=== PATIENT | male | born 1945 | race Caucasian/White ===

== ENCOUNTER 2016-11-05 10:18 | Day surgery (SDC) | payer MEDICARE ==
[2016-11-05] MEDS ORDERED: LIDOCAINE 2% MDV (20MG/ML) 20ML VIAL IV ONE (14:00)
[2016-11-05] MEDS ORDERED: PROPOFOL 10 MG/ML VIAL IV ONE (14:00)
--- NOTE | 2016-11-07 12:40 | Operative Note ---
DATE OF SURGERY: 11/05/2016 OPERATION: COLONOSCOPY to the cecum with cold snare polypectomy x1. INDICATION: Colorectal cancer screening. His last examination was 10 years ago. ANESTHESIA: Intravenous sedation was administered by the department of anesthesiology and included Diprivan titrated to effect. PROCEDURE: Following informed consent from this alert individual including a discussion of the risks and benefits of the procedure and an opportunity for the patient to ask questions, the patient was in the left lateral decubitus position. A digital rectal examination was performed. No abnormalities were noted. Following this, the Olympus [id number] video colonoscope was inserted into the rectum without resistance. The rectal mucosa had a normal appearance with normal folds and distensibility. The colonoscope was advanced up through the colon to the level of the cecum without much difficulty. Throughout the bowel the mucosa appeared normal, the folds were normal, and the bowel was fairly well distensible. The cecum was well defined by noting the appendiceal orifice, ileocecal valve, and cecal base. Retroflexion in the cecum was endoscopically unremarkable. The colon preparation was good. From the base of the cecum, the colonoscope was then withdrawn. No abnormalities were detected until the sigmoid colon was reached. Within the sigmoid, there were a few scattered diverticula noted. Also noted with a sessile 5 mm polyp which was removed with cold snare polypectomy and suctioned through the endoscope into a collection trap. Retroflexion in the rectum demonstrated small internal hemorrhoids. The endoscope was straightened and withdrawn. The patient tolerated the procedure well and was returned to the recovery area in stable condition. IMPRESSION: 1. A 5 mm sigmoid polyp removed with cold snare polypectomy. 2. Sigmoid diverticulosis. 3. Small internal hemorrhoids. RECOMMENDATIONS: The patient was advised he should receive a copy of his pathology report at home in the next 2-3 weeks. If not, he was asked to call my office to review the results of testing today. Further recommendations forthcoming pending those results. Followup will also be with Dr. Shell. As always, thank you for allowing me to participate in the care of your patient. CC: PETER SHELL MD, FACP [facility]
== END 2016-11-05 12:40 | disposition home or self-care (01) ==
LOC: HOP 10:18
PROVIDERS: ATTEND Internal Medicine Gastroenterology
DX: Z12.11 Encounter for screening for malignant neoplasm of colon (principal); D12.5 Benign neoplasm of sigmoid colon; K57.30 Diverticulosis of large intestine without perforation or abscess without bleeding; K64.8 Other hemorrhoids; I10 Essential (primary) hypertension

== ENCOUNTER 2018-10-13 10:29 | Emergency (ER) | payer MEDICARE, OTHER ==
[2018-10-13] MEDS ORDERED: ONDANSETRON HCL IV 4 MG/2 ML VIAL IVP ONE (11:03)
[2018-10-13] MEDS ORDERED: HYDROMORPHONE HCL 2 MG/ML VIAL IVP ONE (11:03)
--- NOTE | 2018-10-13 12:25 | Emergency Department Record ---
History of Present Illness - General Chief Complaint: Ankle/Foot Injury Stated Complaint: RT ANKLE INJURY Time Seen by Provider: 10/13/18 10:46 Source: Patient Mode of Arrival: Wheelchair Limitations: No limitations - History of Present Illness Initial Comments: pt fell 15 ft out of a treestand onto his r foot. his ankle hurts and he has slight pain in his back MD Complaint: Foot injury Onset/Timin -: Minutes(s) Injury: Ankle: Right Place: Street/outdoors Improves With: Nothing Worsens With: Nothing Context: Fall Associated Symptoms: Able to partially bear weight Treatments Prior to Arrival: Cold therapy - Related Data Home Medications Medication Instructions Recorded Confirmed Last Taken Toño/D3/Mag11/Zinc/Direct Selling Counselor/Arie/Bor 1 each PO DAILY 10/13/18 10/13/18 10/13/18 [Caltrate 600+D Plus Tablet] Multivit-Min/FA/Lycopen/Lutein 1 each PO DAILY 10/13/18 10/13/18 10/13/18 [Centrum Silver Tablet] Previous Rx's Medication Instructions Recorded Hydrocodone/Acetaminophen [Jackpot 1 each PO Q6HR #7 tablet 10/13/18 5-325 Tablet] Allergies Allergy/AdvReac Type Severity Reaction Status Date / Time No Known Drug Allergies Allergy Verified 10/01/15 09:57 Travel Screening - Travel/Exposure Within Last 30 Days Have you traveled within the last 30 days?: No - Travel/Exposure Within Last Year Have you traveled outside the [place] in the last year?: No - Additonal Travel Details Have you been exposed to anyone with a communicable illness?: No - Travel Symptoms Symptom Screening: None Review of Systems Reviewed: No additional complaints except as noted below Constitutional: Reports: As per HPI. Denies: Chills, Fever, Malaise, Night sweats, Weakness, Weight change Eyes: Reports: As per HPI. Denies: Eye discharge, Eye pain, Photophobia, Vision change ENT: Reports: As per HPI. Denies: Congestion, Dental pain, Ear pain, Epistaxis, Hearing loss, Throat pain Respiratory: Reports: As per HPI. Denies: Cough, Dyspnea, Hemoptysis, Stridor, Wheezes Cardiovascular: Reports: As per HPI. Denies: Arrhythmia, Chest pain, Dyspnea on exertion, Edema, Murmurs, Orthopnea, Palpitations, Paroxysmal nocturnal dyspnea, Rheumatic Fever, Syncope Endocrine: Reports: As per HPI. Denies: Fatigue, Heat or cold intolerance, Polydipsia, Polyuria Gastrointestinal: Reports: As per HPI. Denies: Abdominal pain, Constipation, Diarrhea, Hematemesis, Hematochezia, Melena, Nausea, Vomiting Genitourinary: Reports: As per HPI. Denies: Dysuria, Frequency, Hematuria, Incontinence, Retention, Testicular pain, Testicular mass, Urgency Musculoskeletal: Reports: As per HPI. Denies: Arthralgia, Back pain, Gout, Joint swelling, Myalgia, Neck pain Skin: Reports: As per HPI. Denies: Bruising, Change in color, Change in hair/nails, Lesions, Pruritus, Rash Neurological: Reports: As per HPI. Denies: Abnormal gait, Confusion, Headache, Numbness, Paresthesias, Seizure, Tingling, Tremors, Vertigo, Weakness Psychiatric: Reports: As per HPI. Denies: Anxiety, Auditory hallucinations, Depression, Homicidal thoughts, Suicidal thoughts, Visual hallucinations Hematological/Lymphatic: Reports: As per HPI. Denies: Anemia, Blood Clots, Easy bleeding, Easy bruising, Swollen glands Past Medical History - SOCIAL HISTORY Smoking Status: Never smoker Alcohol Use: Rare Drug Use: None - RESPIRATORY Hx Respiratory Disorders: No - CARDIOVASCULAR Hx Cardio Disorders: Yes Hx Hypertension: Yes - NEURO Hx Neuro Disorders: Yes Hx Headaches: Yes Hx Seizures: Yes (over 40 yrs ago) - GI Hx GI Disorders: Yes Hx of Polyps: Yes - Hx Genitourinary Disorders: No - ENDOCRINE Hx Endocrine Disorders: No - MUSCULOSKELETAL Hx Musculoskeletal Disorders: No - PSYCH Hx Psych Problems: No - HEMATOLOGY/ONCOLOGY Hx Hematology/Oncology Disorders: No Family Medical History Any Significant Family History?: No Hx Cancer: Mother Hx Resp Disorders: Father Physical Exam - General General Appearance: Alert, Oriented x3, Cooperative, Mild distress - Head Head exam: Normal inspection - Eye Eye exam: Normal appearance, PERRL, EOMI Pupils: Normal accommodation - ENT ENT exam: Normal exam, Mucous membranes moist, Normal external ear exam, Normal orophraynx Ear exam: Normal external inspection. negative: External canal tenderness Nasal Exam: Normal inspection. negative: Discharge, Sinus tenderness Mouth exam: Normal external inspection, Tongue normal Teeth exam: Normal inspection. negative: Dental caries Throat exam: Normal inspection. negative: Tonsillar erythema, Tonsillar exudate - Neck Neck exam: Normal inspection, Full ROM. negative: Tenderness - Respiratory Respiratory exam: Normal lung sounds bilaterally. negative: Respiratory distress - Cardiovascular Cardiovascular Exam: Regular rate, Normal rhythm, Normal heart sounds - GI/Abdominal GI/Abdominal exam: Soft, Normal bowel sounds. negative: Tenderness - Rectal Rectal exam: Deferred - exam: Deferred - Extremities Extremities exam: Normal capillary refill, Tenderness. negative: Normal inspection, Full ROM Image of Full Body: 1 - swelling, tender 2 - slight back pain - Back Back exam: Reports: Normal inspection, Full ROM. Denies: Muscle spasm, Rash noted, Tenderness - Neurological Neurological exam: Alert, CN II-XII intact, Normal gait, Oriented X3 - Psychiatric Psychiatric exam: Normal affect, Normal mood - Skin Skin exam: Dry, Intact, Normal color, Warm Course Vital Signs 10/13/18 10:30 Temperature 98.1 F Pulse Rate 62 Respiratory 16 Rate Blood Pressure 128/81 Pulse Ox 98 - Reevaluation(s) Reevaluation #1: 10/13/18 12:26 xrays neg for fx Disposition Disposition: Discharge Clinical Impression: Ankle sprain Qualifiers: Encounter type: initial encounter Involved ligament of ankle: unspecified ligament Laterality: right Qualified Code(s): S93.401A - Sprain of unspecified ligament of right ankle, initial encounter Condition: (1) Good Instructions: Ankle Sprain (ED) Additional Instructions: follow up with family doctor. return sooner if worse. ice and elevate. motrin with food Prescriptions: Hydrocodone/Acetaminophen [Jackpot 5-325 Tablet] 1 each PO Q6HR #7 tablet Quality - Quality Measures Quality Measures: N/A - Blood Pressure Screening Does Patient Have Any of the Following: No Blood Pressure Classification: Pre-Hypertensive BP Reading Systolic Measurement: 128 Diastolic Measurement: 81 Screening for High Blood Pressure: < Pre-Hypertensive BP, F/U Documented > [[id number]] Pre-Hypertensive Follow-up Interventions: Follow-up with rescreen every year.
--- NOTE | 2018-10-15 18:01 | RADIOLOGY REPORT ---
EXAM: ANKLE RIGHT 3 VIEWS HISTORY: PAIN AND SWELLING OF THE ANKLE SINCE FALLING FROM A TREE STAND. TECHNIQUE: Three views, right ankle. COMPARISON: None. FINDINGS: The ankle mortise is preserved. The tibia and fibular are intact. Accessory ossification inferior to the medial malleolus. The talus and calcaneus are intact. Base of the fifth metatarsal bone is intact. Marked soft tissue swelling with joint effusion. No radiopaque foreign body. Additionally, there is peripheral vascular calcification of the dorsalis pedis artery. IMPRESSION: 1. NO EVIDENCE OF ACUTE BONE PATHOLOGY OF THE RIGHT ANKLE. 2. PERIPHERAL VASCULAR DISEASE IN THE RIGHT ANKLE AND FOOT. JOB NUMBER: [id number] MTDD
--- NOTE | 2018-10-15 18:03 | RADIOLOGY REPORT ---
EXAM: FOOT, RIGHT 3 VIEWS HISTORY: RIGHT FOOT PAIN AFTER FALLING OFF A TREE STAND. TECHNIQUE: Three views, right foot. COMPARISON: None. FINDINGS: The phalanges, metatarsal bones, and tarsal bones are intact. Joints are preserved. There are no radiopaque foreign bodies. IMPRESSION: NO EVIDENCE OF ACUTE BONE PATHOLOGY OF THE RIGHT FOOT. JOB NUMBER: [id number] MTDD
--- NOTE | 2018-10-15 18:05 | RADIOLOGY REPORT ---
EXAM: LUMBAR SPINE / AP LAT HISTORY: PATIENT FELL OFF A TREE STAND. BACK PAIN. TECHNIQUE: Two views of the lumbar spine. COMPARISON: None. FINDINGS: No compression fractures. Alignment normal. Disc spacing is mildly narrowed at the L2-3 level. Posterior elements are intact. 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 JOB NUMBER: [id number] [facility]
== END 2018-10-13 12:40 | disposition home or self-care (01) ==
LOC: ER 10:29
DX: S93.401A Sprain of unspecified ligament of right ankle, initial encounter (principal); M79.671 Pain in right foot; M54.5 Low back pain; W14.XXXA Fall from tree, initial encounter; Y92.89 Other specified places as the place of occurrence of the external cause; I10 Essential (primary) hypertension
CPT/HCPCS: 72100; 99284